=== PATIENT | male | born 1960 | race Caucasian/White ===

== ENCOUNTER 2024-08-04 06:59 | Day surgery (SDC) | payer BC ==
[2024-08-04] VITALS (9 sets, daily range): BP systolic 117–128; BP diastolic 69–86; PULSE 58–78; TEMP 98.1–98.4
[~2024-08-04] VITALS: Ht 182.9 cm; Wt 110.7 kg
[~2024-08-04 06:59] MED LIST: CIPRO 500MG TA500 MG PO; COLACE 100100 MG/CAP PO; LR 1,000 ML IV SCH; VICODIN 5/5001 UDTAB PO; [UNRECOGNIZED DRUG - OTHER] TOP
[2024-08-04] MEDS ORDERED: droPERidol 2.5 MG/ML 2 ML VIAL IV PRN (07:30)
[2024-08-04] MEDS ORDERED: HYDROmorphone 1 MG/1 ML SYRINGE [PACU/SDC ONLY] IV PRN (07:30)
[2024-08-04] MEDS ORDERED: fentaNYL 50 MCG/ML 1 ML SYRINGE/VIAL [PACU/SDC ONLY] IV PRN (07:30)
[2024-08-04] MEDS ORDERED: hydrALAZINE 20 MG/ML 1 ML VIAL IV PRN (07:30)
[2024-08-04] MEDS ORDERED: Ondansetron 4 MG/2 ML VIAL IV PRN ×2 (07:30→09:15)
[2024-08-04] MEDS ORDERED: NS 30 ML IV ONE (08:55)
[2024-08-04] MEDS ORDERED: dexAMETHasone 10 MG/ML VIAL ONE ×2 (08:55→10:10)
[2024-08-04] MEDS ORDERED: Midazolam 2 MG/2 ML VIAL ONE (08:55)
[2024-08-04] MEDS ORDERED: TYLENOL 500MG500 MG PO ×2 (09:09→09:29)
[2024-08-04] MEDS ORDERED: ROXICODONE 55 MG/TAB PO (09:09)
[2024-08-04] MEDS ORDERED: Acetaminophen 325 MG TAB PO PRN (09:15)
[2024-08-04] MEDS ORDERED: oxyCODONE 5 MG TAB PO PRN (09:15)
[2024-08-04] MEDS ORDERED: Ibuprofen 600 MG TAB PO PRN (09:15)
[2024-08-04] MEDS ORDERED: fentaNYL 50 MCG/ML 2 ML VIAL ONE (09:28)
[2024-08-04] MEDS ORDERED: Ketorolac 30 MG/ML VIAL ONE (10:10)
[2024-08-04] MEDS ORDERED: Ondansetron 4 MG/2 ML VIAL ONE (10:10)
[2024-08-04] MEDS ORDERED: Lidocaine PF 2% (20 MG/ML) 5 ML VIAL ONE (10:10)
[2024-08-04] MEDS ORDERED: NS 10 ML IV ONE (10:10)
[2024-08-04] MEDS ORDERED: Rocuronium 50 MG/5 ML Multi-Dose VIAL ONE (10:11)
--- NOTE | 2024-08-04 15:10 | NUR ---
1215 RETURNS TO ROOM 6 PER CART WITH HOB ELEVATED 30 DEGREES. RESP UNLABORED O2 PER N/C. ABD SOFT. BANDAIDS X 4 SITE TO LEFT ABD CLEAN DRY AND INTACT. ABD BINDER ON. PATIENT IS DROWSY, AROUSES SPONTANEOUSLY. PATIENT EXPRESSES COMFORT AT PRESENT. CALL LIGHT AT SIDE. IN ROOM 1230 AROUSES TO VERBAL STIMULI. ATTEMPT MADE TO REPOSITION ON CART. PATIENT REPORTS SIGNIFICANT INCREASE IN ABD DISCOMFORT WITH MOVEMENT. 1248 AROUSES EASILY. EXPRESSES CONCERNS REGARDING GOING HOME. PO OXYCODONE 5 MG AND TYLENOL 650 MG ADMINISTERED. REST ENCOURAGED 1315 PATIENT HAS BEEN RESTING. ABD REMAINS SOFT. BINDER ON. REPORTS INCREASED COMFORT 1345 HOB ELEVATED 60 DEGREES. TOLERATES PO WATER WITHOUT NAUSEA. PATIENT CONTINUES TO EXPRESS CONCERNS REGARDING DISCHARGE TODAY. REASSURANCE GIVEN THAT WILL NOT BE DISCHARGED UNTIL ALL CRITERIA MET 1409 AWAKE, PATIENT "FEELING BETTER" DILAUDID 0.5 MG GIVEN IV 1430 DOZING. RESP UNLABORED 1450 AWAKE, ALERT. CONVERSES WITH . REPORTS FEELS "A LOT BETTER". DISCHARGE INSTRUCTIONS REVIEWED. PATIENT AND VERBALIZE UNDERSANDING. COPY PROVIDED IN DISCHARGE FOLDER 1500 SITS ON EDGE OF BED. DRESSES WITH ASSIST FROM . MOVES QUITE WELL
== END 2024-08-04 15:10 | disposition home or self-care (01) ==
LOC: SDCO 06:59
DX: K43.2 Incisional hernia without obstruction or gangrene (principal); F17.290 Nicotine dependence, other tobacco product, uncomplicated; Z85.46 Personal history of malignant neoplasm of prostate
CPT/HCPCS: C1781; J0360; J0690; J1100; J1171; J1885; J2250; J2405; J2704; J2795; J3010; J7120